=== PATIENT | female | born 1970 | race Two or more races ===

== ENCOUNTER 2020-02-08 18:16 | Emergency (ER) | payer MEDICARE ==
[~2020-02-08] VITALS: Ht 167.6 cm; Wt 79.0 kg
[2020-02-08] MEDS ORDERED: KETOROLAC 60MG/2ML VIAL IM STA (18:40)
[2020-02-08 19:28] LABS: BASOPHILS % 0.5 % (0.0-2.0); EOSINOPHILS % 1.2 % (0.0-5.0); HEMATOCRIT. 35.5 % (36.0-48.0); HEMOGLOBIN. 11.5 g/dL (12.0-16.0); LYMPHOCYTES % 29.2 % (20.0-50.0); MEAN CORPUSCULAR HEMOGLOBIN 27.1 pg (28.0-32.0); MEAN CORPUSCULAR VOLUME 83.6 fL (81.0-99.0); MEAN PLATELET VOLUME 9.8 fl (7.4-10.4); MONOCYTES % 7.5 % (2.0-8.0); NEUTROPHILS % 61.6 % (40.0-76.0); PLATELET 263 x1000/uL (130-400); RED BLOOD CELL COUNT 4.25 mill/uL (4.2-5.4); RED CELL DISTRIBUTION WIDTH 16.3 % (11.6-14.6)
[2020-02-08 19:33] LABS: CHLORIDE 108 mEq/L (98-107); HCG SCREEN NEGATIVE
[2020-02-08 19:39] LABS: ETHANOL BLOOD 155 mg/dL
[2020-02-08] MEDS ORDERED: ACETAMINOPHEN 325MG TABLET PO ONE (20:00)
[2020-02-08] MEDS ORDERED: ACETAMINOPHEN 160 MG/5 ML UD CUP PO ONE (21:45)
[2020-02-08 22:40] VITALS: BP 109/68
== END 2020-02-09 00:12 | disposition home or self-care (01) ==
LOC: ER 18:16
DX: S09.8XXA Other specified injuries of head, initial encounter (principal); S20.219A Contusion of unspecified front wall of thorax, initial encounter; M54.2 Cervicalgia; F10.129 Alcohol abuse with intoxication, unspecified; F99 Mental disorder, not otherwise specified; Y90.6 Blood alcohol level of 120-199 mg/100 ml; V43.52XA Car driver injured in collision with other type car in traffic accident, initial encounter; Y93.89 Activity, other specified; Y92.488 Other paved roadways as the place of occurrence of the external cause
CPT/HCPCS: 36415; 70450; 71045; 72125; 80053; 80320; 84703; 85025; 93005; 96372; 99285; J1885; G0480